=== PATIENT | female | born 1985 | race African-American/Black ===

== ENCOUNTER 2024-07-24 01:22 | Emergency (ER) | payer OTHER ==
[2024-07-24 01:27] VITALS: RESP 20; TEMP 97.8; BMI 34.3
[2024-07-24] MEDS ORDERED: FAMOTIDINE 20 MG/50 ML IVPB 20 MG/50 ML MG IVPB ONE (02:01)
[2024-07-24] MEDS ORDERED: ONDANSETRON 4 MG/2 ML VIAL ONE (02:01)
[2024-07-24] MEDS ORDERED: ACETAMINOPHEN INJECTION 100 ML ONE (02:01)
[2024-07-24] MEDS: ACETAMINOPHEN 1000 MG/100 ML BAG IVPB ONE (02:17)
[2024-07-24] MEDS: FAMOTIDINE 20 MG/50 ML IVPB 20 MG/50 ML MG IVPB ONE (02:27)
[2024-07-24] MEDS: LACTATED RINGERS SOLUTION 1000 ML INFUS.BAG IV ONE (02:38)
[2024-07-24] MEDS: ONDANSETRON 4 MG/2 ML VIAL IVPUSH ONE (02:38)
[2024-07-24 02:57] LABS: ABSOLUTE IMMATURE GRANULOCYTES 0.01 x10^3/uL (0.0-0.031); BASOPHILS # 0.02 x10^3/uL (0.01-0.08); EOSINOPHIL % 1.7 % (0.7-5.8); EOSINOPHILS # 0.08 x10^3/uL (0.04-0.36); HEMATOCRIT 37.6 % (34.1-44.9); HEMOGLOBIN 12.7 g/dL (11.2-15.7); MCHC 33.8 g/dl (32.2-35.5); MEAN CELL VOLUME 95.7 fl (79.4-94.8); MEAN PLT VOLUME 10.4 fl (9.4-12.3); MONOCYTE % 10.4 % (4.7-12.5); PLATELET COUNT 175 x10^3/uL (182-369); RDW 12.3 % (12.1-16.8)
[2024-07-24 03:18] LABS: POTASSIUM 3.3 mmol/L (3.5-5.1)
[2024-07-24 03:23] LABS: ALBUMIN 3.6 g/dl (3.4-5.0); BLOOD UREA NITROGEN 5.6 mg/dL (7-18); MAGNESIUM 1.4 mg/dL (1.8-2.4)
[2024-07-24 03:26] LABS: CREATININE 0.6 mg/dL (0.55-1.3)
[2024-07-24 03:27] LABS: BILIRUBIN,TOTAL 0.6 mg/dL (0.2-1)
[2024-07-24 03:28] LABS: TOT PROT 7.7 g/dl (6.4-8.2)
[2024-07-24] MEDS ORDERED: POTASSIUM CHLORIDE TABS 20 MEQ TABLET.ER (FP) PO ONE (03:37)
[2024-07-24] MEDS ORDERED: MAGNESIUM SULFATE IN WATER 2 GM/50 ML IVPB IVPB ONE (03:37)
[2024-07-24] MEDS: MAGNESIUM SULFATE IN WATER 2 GM/50 ML IVPB IVPB ONE (03:41)
[2024-07-24] MEDS: POTASSIUM CHLORIDE TABS 20 MEQ TABLET.ER (FP) PO ONE (03:41)
[2024-07-24 07:51] VITALS: BP 130/88; PULSE 83
== END 2024-07-24 07:50 | disposition home or self-care (01) ==
LOC: JER 01:22
PROC: 3E033GC Introduction of Other Therapeutic Substance into Peripheral Vein, Percutaneous Approach (ICD-10-PCS; principal; 2024-07-24)
PROC: 3E033GC Introduction of Other Therapeutic Substance into Peripheral Vein, Percutaneous Approach (ICD-10-PCS; 2024-07-24)
PROC: 3E033NZ Introduction of Analgesics, Hypnotics, Sedatives into Peripheral Vein, Percutaneous Approach (ICD-10-PCS; 2024-07-24)
PROC: 3E033GC Introduction of Other Therapeutic Substance into Peripheral Vein, Percutaneous Approach (ICD-10-PCS; 2024-07-24)
DX: R10.11 Right upper quadrant pain (principal); R10.13 Epigastric pain; R10.33 Periumbilical pain; R11.2 Nausea with vomiting, unspecified; R19.7 Diarrhea, unspecified
CPT/HCPCS: 0241U-QW; 36415; 76705-TC; 80053; 83690; 83735; 84703; 85025; 86803; 86850; 86900; 86901; 93005; 93010; 99285-25